=== PATIENT | female | born 1975 | race Caucasian/White ===

== ENCOUNTER 2023-03-05 10:49 | Outpatient (OUT) | payer OTHER, SELFPAY ==
--- NOTE | 2023-03-05 11:05 | ECG_ITS ---
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
--- NOTE | 2023-03-05 11:29 | PM.PRESUREVA ---
History of Present Illness History of Present Illness Chief complaint: rt. carpal tunnel syndrome Narrative: Patient presents for preadmission testing. Please see HPI from Dr. Mckay dated 02/27/2023. Review of Systems ROS Narrative Please see ROS from Dr. Mckay dated 02/27/2023. 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 Highest level of school completed/degree received: high school graduate Meds Home Medications and Allergies Home Medications Medication Instructions Recorded Confirmed Type linagliptin 5 mg tablet (Tradjenta) 5 mg PO DAILY 03/05/23 03/05/23 History metformin 1,000 mg tablet 1,000 mg PO DAILY 03/05/23 03/05/23 History omeprazole 40 mg capsule,delayed 40 mg PO DAILY 03/05/23 03/05/23 History release Allergies Allergy/AdvReac Type Severity Reaction Status Date / Time No Known Drug Allergies Allergy Verified 03/05/23 11:08 Exam Narrative Exam Narrative: Constitutional: Awake, alert, comfortable, well-appearing, nontoxic, interactive, vital signs as charted Head: Normocephalic, atraumatic Neck: Supple, normal appearance, normal range of motion, no meningeal signs, no lymphadenopathy Respiratory: No respiratory distress, breath sounds clear Cardiovascular: Regular rate and rhythm, strong and regular heart tones Psychiatric: Oriented ?3, normal affect
[2023-03-05 11:53] LABS: Basophils Percent Auto 0.6 % (0.2-2.0); Eosinophils Absolute Auto 0.1 10^3/uL (0.0-0.7); Hematocrit 43.7 % (36.0-48.0); Hemoglobin 14.3 g/dL (12.0-16.0); Immature Granulocytes Abs Auto 0.03 10^3/uL (0.00-0.03); Immature Granulocytes Pct Auto 0.4 % (0.0-0.5); Lymphocytes Absolute Auto 1.1 10^3/uL (1.2-3.8); Lymphocytes Percent Auto 17.1 % (20.5-60.0); Mean Corpuscular HGB Conc 32.7 g/dL (29.9-35.2); Mean Corpuscular Hemoglobin 28.9 pg (26.7-34.0); Mean Corpuscular Volume 88.3 fL (81.0-99.0); Mean Platelet Volume 10.8 fL (9.5-13.5); Monocytes Absolute Auto 0.4 10^3/uL (0.3-0.8); Monocytes Percent Auto 6.6 % (1.7-12.0); Neutrophils Percent Auto 74.3 % (43.0-75.0); Platelet Count 269 10^3/uL (150-450); Red Blood Count 4.95 10^6/uL (4.20-5.40); Red Cell Distribution Width 13.4 % (11.0-15.0); White Blood Count 6.7 10^3/uL (4.0-11.0)
[2023-03-05 11:59] LABS: Anion Gap 16.4; BUN Creatinine Ratio 11.3; Calcium 9.1 mg/dL (8.5-10.1); Carbon Dioxide 22.6 mmol/L (21.0-32.0); Chloride 101 mmol/L (98-107); Estimated GFR (African America >60 (>=60); Estimated GFR (Non-African Ame >60 (>=60); Glucose 185 mg/dL (74-106); Sodium 136 mmol/L (136-145)
== END 2023-03-05 10:50 | disposition home or self-care (01) ==
PROVIDERS: Visit Provider Orthopaedic Surgery
DX: Z01.810 Encounter for preprocedural cardiovascular examination (principal); Z01.812 Encounter for preprocedural laboratory examination; G56.01 Carpal tunnel syndrome, right upper limb; E11.9 Type 2 diabetes mellitus without complications
CPT/HCPCS: 36415; 80048; 85025; 93005; G0463

== ENCOUNTER 2023-03-11 10:49 | Day surgery (SDC) | payer OTHER, SELFPAY ==
[2023-03-05 11:24] VITALS: BP 148/73; PULSE 95; RESP 20; TEMP 36.3; O2SAT 96; BMI 53.6
[2023-03-11 11:07] VITALS: BP 152/66; PULSE 96; RESP 20; TEMP 37; O2SAT 98; BMI 53.6
[2023-03-11] MEDS: LACTATED RINGER'S SOLUTION 1,000 ML 50 ML IV (11:21)
[2023-03-11] MEDS: CEFAZOLIN SODIUM/DEXTROSE,ISO 2 GM/50 ML PIGGYBACK IV (12:17)
[2023-03-11] MEDS: LIDOCAINE HCL 1%-EPINEPHRINE 1:100,000 20 ML MDV 5 ML INJ (12:34)
[2023-03-11] MEDS: BUPIVACAINE HCL 0.5% PF 50 MG/10 ML VIAL INJ (12:35)
[2023-03-11] MEDS: LIDOCAINE HCL 1%-EPINEPHRINE 1:100,000 20 ML MDV INJ (12:51)
[2023-03-11 13:03] VITALS: BP 157/80; PULSE 92; RESP 18; TEMP 36.1; O2SAT 97
[2023-03-11 13:20] VITALS: BP 151/60; PULSE 98; RESP 18; O2SAT 96
[2023-03-11 13:35] VITALS: BP 127/75; PULSE 96; RESP 18; O2SAT 96
--- NOTE | 2023-03-11 15:09 | PM.ORPRC ---
Procedure Note Date of procedure: 03/11/23 Post-op diagnosis: same as pre-op Procedure: Procedure: Right endoscopic carpal tunnel release Operative procedure: After informed consent was obtained the patient brought the operating room where a monitored anesthetic was administered. The procedure a total of 5 mL 0.5% Marcaine plain and 8 mL 1% lidocaine with epinephrine were infiltrated in to the operative site. A well-padded proximal arm tourniquet was placed in the right arm was prepped and draped in usual sterile fashion. The arm is elevated, exsanguinated, and the tourniquet was inflated to 250 mmHg. A 1 cm incision was made in pre-existing wrist crease just ulnar to the palmaris longus. Blunt dissection was carried down to the forearm fascia and a base flap was created. The fascia was incised for 1 to 2 cm proximally under direct visualization. Tension was then turned to the endoscopic carpal tunnel release. Synovial elevator was used followed by the sequential dilators. The endoscopic carpal tunnel release instrument was then placed. The transverse fibers were identified and incised from distal to proximal. Complete separation was achieved. Tourniquet was deflated. Wound was irrigated and closed with nylon suture. Sterile dressing was placed. Patient was brought to the recovery room in stable condition. There were no intraoperative or immediate postoperative complications. Anesthesia: MAC and local Surgeon: Ivan Mckay Estimated blood loss (mL): 5 Pathology: none sent Condition: stable Disposition: same day
== END 2023-03-11 13:50 | disposition home or self-care (01) ==
PROVIDERS: Visit Provider Orthopaedic Surgery
PROC: (CPT 29848; principal; 2023-03-11 12:00)
DX: G56.01 Carpal tunnel syndrome, right upper limb (principal); E11.9 Type 2 diabetes mellitus without complications; D64.9 Anemia, unspecified; Z79.84 Long term (current) use of oral hypoglycemic drugs
CPT/HCPCS: 29848; 36415; 82948; J2704